=== PATIENT | female | born 1950 | race Caucasian/White ===

== ENCOUNTER 2021-01-10 16:46 | Emergency (ER) | payer OTHER ==
[~2021-01-10] VITALS: Ht 167.6 cm; Wt 65.8 kg
[2021-01-10] MEDS ORDERED: SODIUM CHLORIDE 0.9% 500 ML IV ONE (17:15)
[2021-01-10] MEDS ORDERED: MORPHINE SULFATE 4 MG/ML SYR/VIAL IV ONE (17:15)
[2021-01-10] MEDS ORDERED: LORazepam 2MG/ML-1ML VIAL IV ONE (18:00)
[2021-01-10] MEDS ORDERED: MORPHINE SULF INJ 2 MG/ML SYRINGE 1ML IV ONE (18:00)
[2021-01-10 18:32] LABS: Basophils # (auto) 0 10 ^3/uL (0-0.2); Basophils % (auto) 0.3 % (0.0-2.0); Eosinophils # (auto) 0.1 10 ^3/uL (0-0.8); Hematocrit 41.1 % (36.0-46.0); Hemoglobin 13.6 g/dL (12.2-16.2); Lymphocytes # (auto) 1.2 10 ^3/uL (0.4-5.4); Lymphocytes % (auto) 12.1 % (10.0-50.0); Mean Corpuscular Hemoglobin 29.9 pg (28.0-32.0); Mean Corpuscular Hgb Conc. 33.1 g/dL (32.0-36.0); Mean Corpuscular Volume 90.4 fL (80.0-100.0); Monocytes # (auto) 0.6 10 ^3/uL (0-1.3); Monocytes % (auto) 6.3 % (0.0-12.0); Neutrophils # (auto) 8.1 10 ^3/uL (1.6-8.6); Neutrophils % (auto) 80.3 % (37.0-80.0); Platelet Count (auto) 215 10^3/uL (140-450); Red Blood Cells 4.55 10^6/uL (4.0-5.20)
[2021-01-10 18:52] LABS: INR 0.97 (0.9-1.15); Partial Thromboplastin Time 22.6 sec (23.0-31.2)
[2021-01-10 19:12] LABS: Albumin 3.9 g/dL (3.4-5.0); Anion Gap 1 (5-15); Blood Urea Nitrogen 13 mg/dL (7-18); Calcium 8.4 mg/dL (8.5-10.1); Carbon Dioxide 31 mmol/L (21-32); Chloride 109 mmol/L (98-107); Glucose 111 mg/dL (74-106); Lipase 299 U/L (73-393); Magnesium 2.3 mg/dL (1.6-2.6); Potassium 4.1 mmol/L (3.5-5.1); Sodium 141 mmol/L (136-145)
[2021-01-10] MEDS ORDERED: SODIUM CHLORIDE 0.9% 1,000 ML IV ONE (19:15)
[2021-01-10] MEDS ORDERED: LIDOCAINE HCL 2% TOP JELLY 5ML TOP ONE (19:15)
[2021-01-10 19:21] LABS: Alanine Aminotransferase 40 U/L (13-56); Alkaline Phosphatase 98 U/L (45-117); Aspartate Aminotransferase 52 U/L (15-37); BUN/Creatinine Ratio 14.6; Bilirubin, Total 0.2 mg/dL (0.2-1.0); GFR African American 80 mL/min; GFR Non-African American 66 mL/min; Total Protein 7.7 g/dL (6.4-8.2)
[2021-01-10 23:04] VITALS: BP 141/99
== END 2021-01-10 23:32 | disposition short-term general hospital (02) ==
LOC: ER 16:46 → EDBD 16:46 → ER 23:32
DX: K56.699 Other intestinal obstruction unspecified as to partial versus complete obstruction (principal); K46.0 Unspecified abdominal hernia with obstruction, without gangrene; K56.2 Volvulus; J45.909 Unspecified asthma, uncomplicated; K21.9 Gastro-esophageal reflux disease without esophagitis; E78.5 Hyperlipidemia, unspecified; R42 Dizziness and giddiness; I10 Essential (primary) hypertension; Z98.51 Tubal ligation status; Z20.822 Contact with and (suspected) exposure to COVID-19
CPT/HCPCS: 36415; 71045; 74176; 76705; 80053; 83605; 83690; 83735; 83880; 84484; 85025; 85610; 85730; 87426; 93005; 96361; 96374; 96375; 96376; 99285; J2060; J2270; J7030; J7040

== ENCOUNTER 2023-12-19 06:27 | Inpatient (IN) | payer OTHER ==
[~2023-12-19] VITALS: Ht 165.1 cm; Wt 65.3 kg
[2023-12-19 07:15] LABS: Basophils # (auto) 0.1 10 ^3/uL (0-0.2); Basophils % (auto) 0.6 % (0.0-2.0); Eosinophils # (auto) 0.2 10 ^3/uL (0-0.8); Eosinophils % (auto) 1.6 % (0.0-7.0); Hematocrit 46.8 % (36.0-46.0); Hemoglobin 15.3 g/dL (12.2-16.2); Lymphocytes # (auto) 1.3 10 ^3/uL (0.4-5.4); Lymphocytes % (auto) 12.7 % (10.0-50.0); Mean Corpuscular Hemoglobin 29.7 pg (28.0-32.0); Mean Corpuscular Hgb Conc. 32.8 g/dL (32.0-36.0); Mean Corpuscular Volume 90.5 fL (80.0-100.0); Monocytes # (auto) 0.9 10 ^3/uL (0-1.3); Neutrophils # (auto) 7.5 10 ^3/uL (1.6-8.6); Neutrophils % (auto) 76.1 % (37.0-80.0); Nucleated Red Blood Cells % 0.1 %; Red Blood Cells 5.17 10^6/uL (4.0-5.20); Red Cell Distribution Width 12.5 % (11.8-14.3); White Blood Cell 9.9 10^3/uL (4.4-10.8)
[2023-12-19 07:23] LABS: Chloride 102 mmol/L (98-107); Potassium 3.7 mmol/L (3.5-5.1); Sodium 139 mmol/L (136-145)
[2023-12-19 07:24] LABS: Anion Gap 8 (5-15); Calcium 9.6 mg/dL (8.7-10.4); Carbon Dioxide 29 mmol/L (20-30)
[2023-12-19 07:25] LABS: Urine Bacteria FEW /hpf (None Seen); Urine Blood Negative /uL (Negative); Urine Clarity HAZY (Clear); Urine Color Yellow (Yellow); Urine Hyaline Cast MOD /lpf (0 - 2); Urine Mucus FEW (None Seen); Urine Protein, UAD TRACE (Negative); Urine Urobilinogen Normal (Negative); Urine WBC 56 /hpf (0 - 5)
[2023-12-19 07:29] LABS: BUN/Creatinine Ratio 10.3 (10.0-20.0); Blood Urea Nitrogen 11 mg/dL (9-23); Glucose 107 mg/dL (74-106); Lipase 54 U/L (12-53)
[2023-12-19] MEDS ORDERED: LACTATED RINGER'S 2,000 ML IV ONE (08:00)
[2023-12-19] MEDS ORDERED: DONNATAL 5ml ORAL Elix (BELLADONNA ALK-PHENOBARB) PO ONE (08:00)
[2023-12-19] MEDS ORDERED: ONDANSETRON ODT 4 MG TAB PO ONE (08:00)
[2023-12-19] MEDS ORDERED: LIDOCAINE VISCOUS 2% 15ML UD PO ONE (08:00)
[2023-12-19] MEDS ORDERED: MAALOX PLUS or MAALOX 30 ML PO ONE (08:00)
[2023-12-19] MEDS ORDERED: IOHEXOL 300 MG/ML 100ML BOTTLE IJ ONE (08:07)
[2023-12-19 09:45] LABS: Chloride 103 mmol/L (98-107)
[2023-12-19 09:47] LABS: Carbon Dioxide 22 mmol/L (20-30)
[2023-12-19 09:48] LABS: Calcium 9.4 mg/dL (8.5-10.1)
[2023-12-19 09:53] LABS: Alkaline Phosphatase 89 U/L (46-116); Glucose 95 mg/dL (74-106)
[2023-12-19 09:55] LABS: Albumin 4.3 g/dL (3.2-4.8); Aspartate Aminotransferase 50 U/L (13-40); Bilirubin, Total 0.4 mg/dL (0.2-1.0); Total Protein 7.2 g/dL (5.7-8.2)
[2023-12-19 10:01] LABS: Alanine Aminotransferase 22 U/L (7-40); BUN/Creatinine Ratio 8.4 (10.0-20.0); Blood Urea Nitrogen 8 mg/dL (9-23); Potassium 4.7 mmol/L (3.5-5.1)
[2023-12-19] MEDS ORDERED: ONDANSETRON HCL 4 MG/2 ML VIAL IV ONE (10:45)
[2023-12-19] MEDS ORDERED: MORPHINE SULFATE INJ 2 MG/ml SYRG IV ONE (10:45)
[2023-12-19 10:52] LABS: Anion Gap 10 (5-15); Sodium 135 mmol/L (136-145)
[2023-12-19 11:29] LABS: Magnesium 2.1 mg/dL (1.6-2.6)
[2023-12-19 13:40] VITALS: PULSE 98; RESP 14; O2SAT 96
[2023-12-19] MEDS ORDERED: PPN PER PHARMACY 0 ML IV SCH (16:45)
[2023-12-19] MEDS: D5W/SOD CHL 0.45%/KCL 20MEQ 1,000 ML IV SCH (16:47)
[2023-12-19] MEDS: HYDROmorphone HCL 2 MG/ML VL/or syr IV PRN ×2 (18:14→22:36)
[2023-12-19] MEDS: ONDANSETRON HCL 4 MG/2 ML VIAL IV PRN ×2 (18:14→22:36)
[2023-12-19 19:35] VITALS: PULSE 92; RESP 12; O2SAT 97
[2023-12-19] MEDS ORDERED: AMINO ACID INFUSION IN D10W 1,000 ML IV NR (20:00)
[2023-12-19] MEDS: SODIUM CHLOR 0.9% PF (SALINE LOCK) 10ML VIAL/SYR IV SCH (21:44)
[2023-12-19] MEDS: hydrALAZINE HCL 20 MG/ML VL IV PRN (21:50)
[2023-12-20] MEDS ORDERED: DEXTROSE (50%) 50ML SYRG IV SCH
[2023-12-20] MEDS: ACCU-CHEK COMFORT CURVE STRIP VI SCH ×4 (00:50→18:55)
[2023-12-20] MEDS: InsuLIN REG 1unit/0.01ml Soln (100units/ml) SC SCH ×4 (00:51→18:00)
[2023-12-20] MEDS: D5W/SOD CHL 0.45%/KCL 20MEQ 1,000 ML IV SCH ×2 (02:52→02:54)
[2023-12-20] MEDS: ONDANSETRON HCL 4 MG/2 ML VIAL IV PRN ×5 (03:12→23:55)
[2023-12-20] MEDS: HYDROmorphone HCL 2 MG/ML VL/or syr IV PRN ×5 (03:12→23:56)
[2023-12-20 04:56] LABS: Basophils # (auto) 0 10 ^3/uL (0-0.2); Basophils % (auto) 0.4 % (0.0-2.0); Eosinophils # (auto) 0.1 10 ^3/uL (0-0.8); Eosinophils % (auto) 1.4 % (0.0-7.0); Hematocrit 40.3 % (36.0-46.0); Hemoglobin 13.7 g/dL (12.2-16.2); Lymphocytes # (auto) 0.8 10 ^3/uL (0.4-5.4); Mean Corpuscular Hemoglobin 30.5 pg (28.0-32.0); Mean Corpuscular Hgb Conc. 34.1 g/dL (32.0-36.0); Mean Corpuscular Volume 89.6 fL (80.0-100.0); Monocytes # (auto) 0.9 10 ^3/uL (0-1.3); Monocytes % (auto) 10.2 % (0.0-12.0); Red Blood Cells 4.49 10^6/uL (4.0-5.20); Red Cell Distribution Width 12.4 % (11.8-14.3); White Blood Cell 8.9 10^3/uL (4.4-10.8)
[2023-12-20 05:16] LABS: Alanine Aminotransferase 14 U/L (7-40); Albumin 4.3 g/dL (3.2-4.8); Alkaline Phosphatase 82 U/L (46-116); Anion Gap 6 (5-15); Aspartate Aminotransferase 17 U/L (13-40); BUN/Creatinine Ratio 13.1 (10.0-20.0); Bilirubin, Total 0.4 mg/dL (0.2-1.0); Blood Urea Nitrogen 11 mg/dL (9-23); Calcium 8.7 mg/dL (8.7-10.4); Carbon Dioxide 29 mmol/L (20-30); Chloride 104 mmol/L (98-107); Glucose 141 mg/dL (74-106); Magnesium 1.9 mg/dL (1.6-2.6); Phosphorus 2.4 mg/dL (2.4-5.1); Potassium 3.7 mmol/L (3.5-5.1); Sodium 139 mmol/L (136-145); Total Protein 6.8 g/dL (5.7-8.2)
[2023-12-20 05:18] LABS: INR 1.06 (0.9-1.15); Partial Thromboplastin Time 27.6 SEC (24.5-34.5); Prothrombin Time 11.1 sec (9.3-11.8)
[2023-12-20 05:23] LABS: Triglycerides 64 mg/dL (< 150)
[2023-12-20] MEDS: SODIUM CHLOR 0.9% PF (SALINE LOCK) 10ML VIAL/SYR IV SCH ×3 (05:24→21:02)
[2023-12-20 08:30] VITALS: PULSE 110; RESP 12; O2SAT 96
[2023-12-20] MEDS ORDERED: POTASSIUM PHOSP 22MEQ(15MMOLE) in NS 100 ML IV ONE (11:30)
[2023-12-20] MEDS ORDERED: PPN PER PHARMACY IV NR ×10 (20:00)
[2023-12-20 20:30] VITALS: PULSE 97; RESP 20; O2SAT 95
[2023-12-20 22:00] VITALS: BP 154/95; PULSE 97; RESP 20; TEMP 98.7; O2SAT 95
[2023-12-21] VITALS (7 sets, daily range): BP systolic 16–154; BP diastolic 55–90; PULSE 70–123; RESP 15–20; TEMP 98.1–98.8; O2SAT 93–97
[2023-12-21] MEDS: ACCU-CHEK COMFORT CURVE STRIP VI SCH ×4 (00:03→18:16)
[2023-12-21] MEDS: hydrALAZINE HCL 20 MG/ML VL IV PRN (01:05)
[2023-12-21] MEDS: ONDANSETRON HCL 4 MG/2 ML VIAL IV PRN ×3 (04:15→17:48)
[2023-12-21] MEDS: HYDROmorphone HCL 2 MG/ML VL/or syr IV PRN ×5 (04:16→22:10)
[2023-12-21] MEDS: InsuLIN REG 1unit/0.01ml Soln (100units/ml) SC SCH ×4 (05:44→18:00)
[2023-12-21] MEDS: SODIUM CHLOR 0.9% PF (SALINE LOCK) 10ML VIAL/SYR IV SCH ×2 (05:44→13:02)
[2023-12-21 06:49] LABS: Alanine Aminotransferase 13 U/L (7-40); Albumin 4.5 g/dL (3.2-4.8); Alkaline Phosphatase 86 U/L (46-116); Anion Gap 5 (5-15); Aspartate Aminotransferase 19 U/L (13-40); BUN/Creatinine Ratio 12.7 (10.0-20.0); Blood Urea Nitrogen 10 mg/dL (9-23); Calcium 9.4 mg/dL (8.5-10.1); Carbon Dioxide 28 mmol/L (20-30); Chloride 106 mmol/L (98-107); Glucose 122 mg/dL (74-106); Potassium 3.4 mmol/L (3.5-5.1); Sodium 139 mmol/L (136-145)
[2023-12-21 06:50] LABS: Bilirubin, Total 0.4 mg/dL (0.2-1.0); Phosphorus 2.7 mg/dL (2.4-5.1); Total Protein 7.2 g/dL (5.7-8.2)
[2023-12-21 07:56] LABS: Magnesium 1.9 mg/dL (1.6-2.6)
[2023-12-21] MEDS ORDERED: PANTOPRAZOLE 40 MG/10 ML VIAL INJ IV SCH (10:00)
[2023-12-21] MEDS ORDERED: cefTRIAXone 1GM/50ML D5W 50 ML IV SCH (11:30)
[2023-12-21] MEDS ORDERED: PPN PER PHARMACY IV NR ×10 (20:00)
== END 2023-12-21 23:50 | disposition short-term general hospital (02) | DRG 381 ==
LOC: ER 06:27 → OVERFLOW 16:51 → WEST WING 12-20 15:32
PROVIDERS: ADMIT Internal Medicine; ATTEND Nurse Practitioner Acute Care
PROC: 0D9670Z Drainage of Stomach with Drainage Device, Via Natural or Artificial Opening (ICD-10-PCS; principal; 2023-12-19)
PROC: 05H933Z Insertion of Infusion Device into Right Brachial Vein, Percutaneous Approach (ICD-10-PCS; 2023-12-21)
PROC: B54MZZA Ultrasonography of Right Upper Extremity Veins, Guidance (ICD-10-PCS; 2023-12-21)
DX: K31.1 Adult hypertrophic pyloric stenosis (principal); K56.609 Unspecified intestinal obstruction, unspecified as to partial versus complete obstruction; E78.5 Hyperlipidemia, unspecified; K21.9 Gastro-esophageal reflux disease without esophagitis; J45.909 Unspecified asthma, uncomplicated; I10 Essential (primary) hypertension; Z88.8 Allergy status to other drugs, medicaments and biological substances
CPT/HCPCS: 36415; 71045; 74177; 80048; 80053; 81001; 82962; 83605; 83690; 83735; 84100; 84478; 84484; 85025; 85610; 85730; 87040; 93005; C9113; G0378; J1815; J2405; J7131; Q0162